=== PATIENT | male | born 1975 | race Caucasian/White ===

== ENCOUNTER 2017-12-28 07:37 | Day surgery (SDC) | payer OTHER ==
[~2017-12-28] VITALS: Ht 175.3 cm; Wt 87.1 kg
[~2017-12-28 07:37] MED LIST: ASCORBIC ACID500 M3 PO; FLOMAX0.4 MG PO; L-LYSINE1000 M1 PO; LYRICA25 MG PO; MOBIC15 MG PO; MULTIPLE VITAM1 EAC1 PO; PYRIDIUM200 MG PO; TRAZODONE HCL50 MG PO; ULTRAM50 MG PO; WELLBUTRIN XL150 MG PO
== END 2017-12-28 09:10 | disposition home or self-care (01) ==
LOC: PAIN 07:37 → SDC 08:00 → PAIN 08:00
DX: M47.816 Spondylosis without myelopathy or radiculopathy, lumbar region (principal); M51.36 Other intervertebral disc degeneration, lumbar region; M25.561 Pain in right knee; M25.562 Pain in left knee; F98.8 Other specified behavioral and emotional disorders with onset usually occurring in childhood and adolescence
CPT/HCPCS: J1030; J2250; S0020

== ENCOUNTER 2018-01-04 09:27 | Day surgery (SDC) | payer OTHER ==
[~2018-01-04] VITALS: Ht 175.3 cm; Wt 87.1 kg
== END 2018-01-04 11:25 | disposition home or self-care (01) ==
LOC: PAIN 09:27 → SDC 09:45 → PAIN 09:45
DX: M47.816 Spondylosis without myelopathy or radiculopathy, lumbar region (principal); M51.36 Other intervertebral disc degeneration, lumbar region; F98.8 Other specified behavioral and emotional disorders with onset usually occurring in childhood and adolescence
CPT/HCPCS: J1030; J2250; S0020